=== PATIENT | female | born 1990 | race Caucasian/White ===

== ENCOUNTER 2016-10-01 11:31 | Outpatient (CLI) | payer OTHER ==
[~2016-10-01] VITALS: Ht 165.1 cm; Wt 105.5 kg
[~2016-10-01 11:31] MED LIST: CEPH-443 PO; DOCU-144 PO; HYDR-3498 PO; SENN-53 PO
[2016-10-01 11:41] VITALS: Ht 165.1 cm; Wt 105.5 kg
[2016-10-01 11:42] VITALS: BP 123/62; PULSE 69; RESP 16
--- NOTE | 2016-10-01 12:02 | PN ---
Date/Time of Note Date/Time of Note DATE: 10/01/16 TIME: 11:58 Assessment/Plan Assessment/Plan Assessment/Plan [facility] Progress Note Date of Service: 10/01/15 Today's Impression & Plan: Overall doing well post op without major issues. No major wound problems. Recommended and discuss ways to achieve a healthier lifestyle (15 min counselling time used). With above assessment, I've recommended the following for today: 1. F/u with PCP 2. F/u with us prn Thank you again for your great care of this very pleasant patient and wonderful family. If there are any questions, please feel free to call me at [phone]. TOTAL VISIT TIME: 20 minutes of which more than half was spent in [id number] discussion with the patient, possibly including family, as well as coordination of care between multiple physicians and providers. Disclaimer: Inadvertent spelling or grammatical errors are likely due to EHR/ dictation software use and do not reflect on the overall quality of patient care. Updated Clinical Summary: Very pleasant 25 y/o young lady with BMI 36.6, s/p lap parag 09/09/16 for severe acute on chronic cholecystitis. Subjective: No major events or complaints since discharge; no major abd pain; no n/v/d; no sob or cp; + flatus; + BM and normal; + activity Objective: Vitals: See below Exam: GENERAL: On exam, the patient was sitting in abed and appeared to be comfortable and in no acute distress. ABDOMEN: Soft, nontender and nondistended. Incisions are clean, dry and intact without any evidence of erythema, edema, discharge, or hernia. There are no peritoneal signs or guarding. SKIN: Skin appears to be pink and feels warm to touch. NEUROLOGIC: Patient is awake, alert, and follows commands appropriately. Exam/Review of Systems Vital Signs Vitals Vital Signs Date Time Temp Pulse Resp B/P Pulse Ox O2 Delivery O2 Flow Rate FiO2 10/01/16 11:42 98.0 69 16 123/62 97 Room Air MANUEL MADDOX M.D. Oct 01, 2016 12:01
== END 2016-10-01 16:53 | disposition home or self-care (01) ==
LOC: HPC 11:31
PROVIDERS: ATTEND Transplant Surgery
DX: Z48.815 Encounter for surgical aftercare following surgery on the digestive system (principal); Z68.36 Body mass index [BMI] 36.0-36.9, adult
CPT/HCPCS: G0463

== ENCOUNTER 2016-12-13 09:24 | Emergency (ER) | payer OTHER ==
[~2016-12-13] VITALS: Ht 162.6 cm; Wt 87.6 kg
[~2016-12-13 09:24] MED LIST changes: -CEPH-443 PO; -HYDR-3498 PO
[2016-12-13 09:26] VITALS: Ht 162.6 cm; Wt 87.6 kg
[2016-12-13] MEDS ORDERED: ONDANSETRON 4 MG INJ IV STA (09:46)
[2016-12-13] MEDS ORDERED: SOD CHLORIDE 0.9% 1,000 ML IV ONE (10:00)
[2016-12-13] MEDS ORDERED: FAMOTIDINE 20 MG TAB PO ONE (10:00)
[2016-12-13 10:15] LABS: ADD SCAN DIFF NO
[2016-12-13] MEDS ORDERED: FAMOTIDINE 20 MG INJ IV ONE (10:30)
[2016-12-13 10:31] LABS: ALBUMIN 4.1 g/dl (3.3-4.9)
[2016-12-13 10:32] LABS: POTASSIUM 3.9 mmol/L (3.5-5.1)
[2016-12-13 10:34] LABS: ALBUMIN/GLOBULIN RATIO 1.17; BILIRUBIN,INDIRECT 0.2 mg/dl (0-1.1); BILIRUBIN,TOTAL 0.2 mg/dl (0.2-1.3); CREATININE 0.63 mg/dl (0.44-1.00); TOTAL PROTEIN 7.6 g/dl (6.1-8.1)
[2016-12-13 10:35] LABS: BASOPHILS % 0.2 % (0.0-2.0); CALCIUM 9.1 mg/dl (8.4-10.2); EOSINOPHILS # 0.1 10^3/ul (0.0-0.5); EOSINOPHILS % 1.2 % (0.0-7.0); HEMATOCRIT 40.6 % (37.0-47.0); LYMPHOCYTES # 3.1 10^3/ul (0.8-2.9); LYMPHOCYTES % 37.5 % (15.0-51.0); MEAN CORPUSCULAR HEMOGLOBIN 27.9 pg (29.0-33.0); MEAN CORPUSCULAR VOLUME 87.1 fl (82.0-101.0); MEAN PLATELET VOLUME 9.9 fl (7.4-10.4); MONOCYTE # 0.6 10^3/ul (0.3-0.9); MONOCYTES % 7.3 % (0.0-11.0); NEUTROPHIL # 4.4 10^3/ul (1.6-7.5); NEUTROPHILS % 53.3 % (39.0-77.0); PLATELET COUNT 293 10^3/UL (140-415); RED BLOOD COUNT 4.66 10^6/ul (4.20-5.40); RED CELL DISTRIBUTION WIDTH 13.8 % (11.5-14.5); WHITE BLOOD COUNT 8.2 10^3/ul (4.8-10.8)
[2016-12-13 10:42] LABS: ADD UMIC NO; URINE BILIRUBIN (Dip) NEGATIVE (NEGATIVE); URINE BLOOD (Dip) NEGATIVE (NEGATIVE); URINE COLOR LT. YELLOW (YELLOW); URINE GLUCOSE (Dip) NEGATIVE (NEGATIVE); URINE KETONES (Dip) NEGATIVE (NEGATIVE); URINE LEUKOCYTE ESTERASE (Dip) NEGATIVE (NEGATIVE); URINE NITRITE (Dip) NEGATIVE (NEGATIVE); URINE TOTAL PROTEIN (Dip) NEGATIVE (NEGATIVE); URINE UROBILINOGEN (Dip) 0.2 E.U./dL (0.1-1.0)
[2016-12-13] MEDS ORDERED: ELEC100080 PO (11:52)
[2016-12-13] MEDS ORDERED: ONDA4TAB8 PO (11:52)
--- NOTE | 2016-12-13 12:02 | ERD ---
ER Documentation Chief Complaint Date/Time DATE: 12/13/16 TIME: 11:57 Chief Complaint vomiting x 2 days HPI Patient is a 26-year-old female who presents to the ED with vomiting, nonbloody nonbilious 2 days. She states that she had [place] food on Thursday12/12/16 and developed nausea and vomiting. She states that she has had multiple episodes yesterday and today. She has a decrease in appetite but tolerated rice yesterday. And has had minimal amounts of water. She has mild generalized abdominal pain. Denies diarrhea or constipation. Last bowel movement was last night and she is passing gas today. Denies chest pain, cough, shortness of breath or difficulty breathing, denies chest pain. She has a history of cholecystectomy, done on 09/09/[address] Viveros. She denies fever or chills. Denies leg pain or swelling. Denies headache or dizziness. Denies weakness. Denies recent travel. ROS All systems reviewed and are negative except as per history of present illness. Medications Home Meds Active Scripts Electrolyte,Oral (Pedialyte) 1,000 Ml Solution, 100 ML PO Q6 Y for VOMITTING for 30 Days, ML Prov:SALOME DEAL PA-C 12/13/16 Ondansetron Hcl* (Zofran*) 4 Mg Tablet, 4 MG PO Q6H for NAUSEA AND/OR VOMITING, #30 TAB Prov:SALOME DEAL PA-C 12/13/16 Sennosides* (Senna Lax*) 8.6 Mg Tablet, 1 TAB PO Q12H Y for CONSTIPATION, #30 TAB Prov:DEBORAH ARZATE 09/10/16 Docusate Sodium* (Colace*) 100 Mg Capsule, 100 MG PO BID Y for CONSTIPATION, # 30 CAP Prov:REGIDORDEBORAH 09/10/16 Allergies Allergies: Coded Allergies: No Known Allergy (Unverified , 12/13/16) PMhx/Soc Medical and Surgical Hx: pt denies Medical Hx History of Surgery: Yes (cholecystectomy 09/05) Anesthesia Reaction: No Hx Neurological Disorder: No Hx Respiratory Disorders: No Hx Cardiac Disorders: No Hx Psychiatric Problems: No Hx Miscellaneous Medical Probl: No Hx Alcohol Use: No Hx Substance Use: No Hx Tobacco Use: No Smoking Status: Never smoker Physical Exam Vitals Vital Signs Date Time Temp Pulse Resp B/P Pulse Ox O2 Delivery O2 Flow Rate FiO2 12/13/16 09:26 97.8 74 18 118/74 99 Physical Exam GENERAL: Well-developed, well-nourished female. Appears in no acute distress. HEAD: Normocephalic, atraumatic. EYES: Pupils are equally reactive bilaterally. EOMs grossly intact. No conjunctival erythema. ENT: Moist mucous membranes. No uvula deviation. No kissing tonsils. No exudates. NECK: Supple. No lymphadenopathy or thyromegaly. No meningismus. negative kernig. negative brudinski. LUNG: Clear to auscultation bilaterally. No rhonchi, wheezing, rales or coarse breath sounds. HEART: Regular rate and rhythm. No murmurs, rubs or gallops. ABDOMEN: ecchymosis or rashes noted. Soft, nontender, and nondistended. Positive bowel sounds in all four quadrants. No rebound tenderness, no guarding. (-) McBurneys point tenderness. No CVA tenderness. BACK: No midline tenderness. Extremities: Equal pulses bilaterally. No peripheral clubbing, cyanosis or edema. No unilateral leg swelling. NEUROLOGIC: Alert and oriented. Moving all four extremities. 5/5 strength in all extremities. Normal speech. Steady gait. SKIN: Normal color. Warm and dry. No rashes or lesions. Capillary refill < 2 seconds Result Diagram: 12/13/16 1000 12/13/16 1000 Results 24 hrs Laboratory Tests Test 12/13/16 09:56 12/13/16 10:00 Urine Color LT. YELLOW Urine Clarity CLEAR Urine pH 5.5 Urine Specific Garber 1.020 Urine Ketones NEGATIVE Urine Nitrite NEGATIVE Urine Bilirubin NEGATIVE Urine Urobilinogen 0.2 E.U./dL Urine Leukocyte Esterase NEGATIVE Urine Hemoglobin NEGATIVE Urine Glucose NEGATIVE% Urine Total Protein NEGATIVE White Blood Count 8.210^3/ul Red Blood Count 4.6610^6/ul Hemoglobin 13.0g/dl Hematocrit 40.6% Mean Corpuscular Volume 87.1fl Mean Corpuscular Hemoglobin 27.9pg Mean Corpuscular Hemoglobin Concent 32.0g/dl Red Cell Distribution Width 13.8% Platelet Count 51792^3/UL Mean Platelet Volume 9.9fl Neutrophils % 53.3% Lymphocytes % 37.5% Monocytes % 7.3% Eosinophils % 1.2% Basophils % 0.2% Nucleated Red Blood Cells % 0.0/100WBC Neutrophils # 4.410^3/ul Lymphocytes # 3.110^3/ul Monocytes # 0.610^3/ul Eosinophils # 0.110^3/ul Basophils # 0.010^3/ul Nucleated Red Blood Cells # 0.010^3/ul Sodium Level 141mmol/L Potassium Level 3.9mmol/L Chloride Level 106mmol/L Carbon Dioxide Level 26mmol/L Anion Gap 13 Blood Urea Nitrogen 10mg/dl Creatinine 0.63mg/dl Glucose Level 98mg/dl Calcium Level 9.1mg/dl Total Bilirubin 0.2mg/dl Direct Bilirubin 0.00mg/dl Indirect Bilirubin 0.2mg/dl Aspartate Amino Transf (AST/SGOT) 18IU/L Alanine Aminotransferase (ALT/SGPT) 21IU/L Alkaline Phosphatase 90IU/L Total Protein 7.6g/dl Albumin 4.1g/dl Globulin 3.50g/dl Albumin/Globulin Ratio 1.17 Lipase 47U/L Current Medications Medications (Trade) Dose Ordered Sig/Mae Route PRN Reason Start Time Stop Time Status Last Admin Dose Admin Ondansetron HCl 4 mg 4 mg ONCE STAT IV 12/13/16 09:46 12/13/16 09:48 DC 12/13/16 10:07 Sodium Chloride (NS) 1,000 ml @ 1,000 mls/hr Q1H ONCE IV 12/13/16 10:00 12/13/16 10:59 DC 12/13/16 10:07 Famotidine (Pepcid) 20 mg ONCE ONCE PO 12/13/16 10:00 12/13/16 10:09 DC Famotidine (Pepcid Iv) 20 mg ONCE ONCE IV 12/13/16 10:30 12/13/16 10:31 DC 12/13/16 10:15 Procedures/MDM ER COURSE: I kept the patient and/or family informed of laboratory and diagnostic imaging results throughout the emergency room course. MEDICATIONS: IV fluids, Zofran, Pepcid. Tolerated well with no adverse reaction and stated improvement in symptoms. LAB INTERPRETATION: CBC showed no evidence of systemic infection or severe anemia. CMP showed no evidence of electrolyte abnormalities, severe acidosis, alkalosis, renal failure , or liver disease. Lipase showed no evidence of acute pancreatitis. UA showed no evidence of leukocytes, nitrites or hematuria. Urine test was negative. MEDICAL DECISION MAKING: This is a 26-year-old female who presents with nausea and vomiting 2 days. Vital signs were reviewed. Patient is afebrile. Patient is not hypoxic. Patient is not toxic or ill-appearing. Pulse 74, temperature 97.8. I consulted with Dr. Hunter regarding this patient. Labs were ordered. I reexamined patient after IV fluids and medicine. Patient seen improvement in symptoms and was ready to be discharged home. Patient likely has vomiting of unknown etiology, likely viral. Her examination did not show focal tenderness, or rebound or guarding. Low suspicion for ACS, AAA, perforated ulcer, bowel obstruction, cholecystitis, choledocholithiasis, cholangitis, pancreatitis, hepatic abscess, appendicitis, diverticulitis, gastroenteritis, hepatitis, peptic ulcer disease, HELLP syndrome, acute abdomen. DISCHARGE: At this time, patient is stable for discharge and outpatient management with no new complaints during the ER course. Patient was sent home with [place] and [place]. I advised patient to return for any worsening symptoms. Note was given for work.. Patient will be discharged home with instructions to recheck for new or worsening symptoms such as fever, nausea, weakness, LOC and to follow up with primary care in the next 1-2 days. Patient was advised to return to the ER for any new or worsening symptoms. Plan was discussed and patient and/ or family understands and agrees. Home instructions were given. Departure Diagnosis: Primary Impression: Vomiting Vomiting type: unspecified Vomiting Intractability: non-intractable Nausea presence: with nausea Qualified Code: R11.2 - Non-intractable vomiting with nausea, unspecified vomiting type Condition: Stable Patient Instructions: Vomiting (6Y-Adult) Additional Instructions: Call your primary care doctor TOMORROW for an appointment during the next 1-2 days.See the doctor sooner or return here if your condition worsens before your appointment time. SALOME DEAL PA-C Dec 13, 2016 12:02
[2016-12-13 12:04] VITALS: BP 124/68; PULSE 78; RESP 18; TEMP 98
== END 2016-12-13 12:10 | disposition home or self-care (01) ==
LOC: FTE 09:24
DX: R11.2 Nausea with vomiting, unspecified (principal)
CPT/HCPCS: 80053; 81003; 83690; 85025; 96361; 96374; 96375; J2405; J7030; Z7502; Z7610

== ENCOUNTER 2017-04-21 14:29 | Emergency (ER) | payer OTHER ==
[~2017-04-21] VITALS: Ht 165.1 cm; Wt 101.5 kg
[~2017-04-21 14:29] MED LIST changes: +ELEC100080 PO; +ONDA4TAB8 PO
[2017-04-21 14:36] VITALS: Ht 165.1 cm; Wt 101.5 kg
[2017-04-21 16:01] LABS: URINE BLOOD (Dip) POC 1+ (NEGATIVE)
[2017-04-21] MEDS ORDERED: CEPH-443 PO (16:17)
--- NOTE | 2017-04-21 17:19 | ERD ---
ER Documentation Chief Complaint Date/Time DATE: 04/21/17 TIME: 17:14 Chief Complaint left sided flank/abdominal pain x 2 days HPI Patient is a 26-year-old female past medical history of a cholecystectomy who presents to the emergency department for concerns of left-sided flank pain 2 days. States pain is localized to the left flank region. Pain does not radiate. Pain is constant. States prior to the start of her pain she did also pull trash can of full of wet towels. Patient states for the last 3 weeks she has had pain with urination. Patient states she has been taking Azo and drinking cranberry juice with no relief of symptoms. Patient also reports urinary urgency and frequency. Patient denies any hematuria. Patient denies any vaginal bleeding, or excessive vaginal discharge. Patient states her LMP was 1 month ago. Patient denies any fevers, chills, nausea, vomiting, abdominal pain, chest pain, shortness breath, loss consciousness. ROS All systems reviewed and are negative except as per history of present illness. Medications Home Meds Active Scripts Cephalexin* (Keflex*) 500 Mg Capsule, 500 MG PO TID for 7 Days, CAP Prov:CAPRI PEREZ PA-C 04/21/17 Electrolyte,Oral (Pedialyte) 1,000 Ml Solution, 100 ML PO Q6 Y for VOMITTING for 30 Days, ML Prov:SALOME DEAL PA-C 12/13/16 Ondansetron Hcl* (Zofran*) 4 Mg Tablet, 4 MG PO Q6H for NAUSEA AND/OR VOMITING, #30 TAB Prov:SALOME DEAL PA-C 12/13/16 Sennosides* (Senna Lax*) 8.6 Mg Tablet, 1 TAB PO Q12H Y for CONSTIPATION, #30 TAB Prov:DEBORAH ARZATE 09/10/16 Docusate Sodium* (Colace*) 100 Mg Capsule, 100 MG PO BID Y for CONSTIPATION, # 30 CAP Prov:REGIDORDEBORAH 09/10/16 Allergies Allergies: Coded Allergies: No Known Allergy (Unverified , 12/13/16) PMhx/Soc Medical and Surgical Hx: pt denies Medical Hx History of Surgery: Yes (cholecystectomy 09/05) Anesthesia Reaction: No Hx Neurological Disorder: No Hx Respiratory Disorders: No Hx Cardiac Disorders: No Hx Psychiatric Problems: No Hx Miscellaneous Medical Probl: No Hx Alcohol Use: No Hx Substance Use: No Hx Tobacco Use: No Smoking Status: Never smoker FmHx Family History: No diabetes Physical Exam Vitals Vital Signs Date Time Temp Pulse Resp B/P Pulse Ox O2 Delivery O2 Flow Rate FiO2 04/21/17 14:36 99.3 98 20 131/92 100 Physical Exam GENERAL: Well-developed, well-nourished female. Appears in no acute distress. HEAD: Normocephalic, atraumatic. EYES: Pupils are equally reactive bilaterally. EOMs grossly intact. No conjunctival erythema. ENT: Moist mucous membranes. No uvula deviation. No kissing tonsils. NECK: Supple. No meningismus. Normal range of motion of the neck. LUNG: Clear to auscultation bilaterally. No rhonchi, wheezing, rales or coarse breath sounds. HEART: Regular rate and rhythm. No murmurs, rubs or gallops. ABDOMEN: No scars, ecchymosis or rashes noted. Soft and nondistended. Tender to palpation of the suprapubic region. Positive bowel sounds in all four quadrants. No rebound tenderness, no guarding. (-) McBurney's point tenderness. Mild R CVA tenderness. BACK: No midline tenderness. EXTREMITIES: Equal pulses bilaterally. No peripheral clubbing, cyanosis or edema. No unilateral leg swelling. NEUROLOGIC: Alert and oriented. Moving all four extremities without any difficulty. Normal speech. Steady gait. SKIN: Normal color. Warm and dry. No rashes or lesions. Results 24 hrs Laboratory Tests Test 04/21/17 16:07 Bedside Urine pH (LAB) 6.0 Bedside Urine Protein (LAB) 1+ Bedside Urine Glucose (UA) Negative Bedside Urine Ketones (LAB) Trace Bedside Urine Blood 1+ Bedside Urine Nitrite (LAB) Positive Bedside Urine Leukocyte Esterase (L 2+ Procedures/MDM MEDICAL DECISION MAKING: This is a 26-year-old female presents the ED for concerns of left-sided flank pain 2 days. Patient also reports urinary frequency and urgency for the last 3 weeks. Patient states she has been drinking hemorrhages as well as trying Azo with no relief of symptoms. Patient denies any fevers.. Vital signs were reviewed. Patient was afebrile. Dip showed positive nitrates, 2+ leukocyte esterase and 1+ blood.. Urine was negative. Given these findings, the patients presentation is most consistent with urinary tract infection versus early pyelonephritis. I have a much lower clinical concern for nephrolithiasis, appendicitis, diverticulitis, constipation, , ectopic , PID, ovarian torsion, or tubo-ovarian abscess. PRESCRIPTIONS: Keflex She was advised she may continue take Azo as needed for symptoms. DISCHARGE: At this time, patient is stable for discharge and outpatient management. She was encouraged to drink plenty of fluids. I have instructed the patient to follow-up with his/her primary care physician in 1-2 days. Patient should repeat UA in 2 weeks to check for resolution of urinary tract infection. If symptoms persist, patient may need to see a specialist for further examinations and testing. I have instructed the patient to promptly return to the ER at any time for any new or worsening symptoms including increased pain, fever, nausea, vomiting, urinary changes or weakness. The patient and/or family expressed understanding of and agreement with this plan. All questions were answered. Home care instructions were provided. Departure Diagnosis: Primary Impression: UTI (urinary tract infection) Urinary tract infection type: site unspecified Hematuria presence: with hematuria Qualified Code: N39.0 - Urinary tract infection with hematuria, site unspecified Condition: Stable Patient Instructions: Understanding Urinary Tract Infections (UTIs) Additional Instructions: Call your primary care doctor TOMORROW for an appointment during the next 1-2 days.See the doctor sooner or return here if your condition worsens before your appointment time. CAPRI PEREZ PA-C Apr 21, 2017 17:19
== END 2017-04-21 16:34 | disposition home or self-care (01) ==
LOC: FTE 14:29
DX: N39.0 Urinary tract infection, site not specified (principal)
CPT/HCPCS: 81003; Z7502; 99283

== ENCOUNTER 2017-10-24 11:21 | Emergency (ER) | END 2017-10-24 16:07 | disposition home or self-care (01) ==

== ENCOUNTER 2017-11-17 10:18 | Emergency (ER) | END 2017-11-17 15:22 | disposition home or self-care (01) ==

== ENCOUNTER 2018-03-16 20:35 | Outpatient (CLI) | END 2018-03-17 01:11 | disposition home or self-care (01) ==

== ENCOUNTER 2018-05-06 17:50 | Inpatient (IN) | END 2018-05-11 16:30 | disposition home or self-care (01) | DRG 775 ==